=== PATIENT | male | born 1930 | race Caucasian/White ===

== ENCOUNTER 2017-07-29 11:52 | Emergency (ER) | payer MEDICARE ==
[2017-07-29] MEDS: dilTIAZem IV PUSH 25 MG/5 ML VIAL IVP (11:45)
[2017-07-29] MEDS: dilTIAZem INJ 125 MG in IV NORMAL SALINE 100ML 100 ML IV ×2 (12:05→12:29)
[2017-07-29] MEDS ORDERED: dilTIAZem INJ 125 MG in IV DEXTROSE 5% 100ML 100 ML IV (12:15)
[2017-07-29 12:20] LABS: ADD MAN DIFF? NO
[2017-07-29 12:24] LABS: BASO # 0.1 x10^3/uL (0.0-0.2); BASO % 1 % (0-3); EOS # 0.4 x10^3/uL (0.0-0.7); EOS % 4 % (0-3); HEMATOCRIT 43.2 % (39.0-53.0); LYMPH # 1.9 x10^3/uL (1.0-4.8); LYMPH % 19 % (24-48); MEAN CORPUSCULAR HEMOGLOBIN 33 pg (25-35); MEAN CORPUSCULAR HGB CONC 35 g/dL (31-37); MEAN CORPUSCULAR VOLUME 95 fL (79-100); MONO # 1.2 x10^3/uL (0.0-1.1); MONO % 11 % (0-9); NEUT # 6.7 x10^3uL (1.8-7.7); NEUT % 65 % (31-73); PLATELET COUNT 244 x10^3/uL (140-400); RED BLOOD COUNT 4.54 x10^6/uL (4.30-5.70); RED CELL DISTRIBUTION WIDTH 14.1 % (11.5-14.5); WHITE BLOOD COUNT 10.2 x10^3/uL (4.0-11.0)
[2017-07-29] MEDS: IV NORMAL SALINE 1000ML BAG 1,000 ML IV ×2 (12:29→13:10)
[2017-07-29 12:33] LABS: PROTHROMBIN TIME PATIENT 21.7 SEC (11.7-14.0)
[2017-07-29 12:35] LABS: ANION GAP 8 (6-14); BLOOD UREA NITROGEN 15 mg/dL (8-26); BUN/CREATININE RATIO 12 (6-20); CALCIUM 9.3 mg/dL (8.5-10.1); CARBON DIOXIDE 29 mmol/L (21-32); CHLORIDE 102 mmol/L (98-107); CREATININE 1.3 mg/dL (0.7-1.3); GLUCOSE 137 mg/dL (70-99); POTASSIUM 3.5 mmol/L (3.5-5.1); SODIUM 139 mmol/L (136-145)
[2017-07-29 12:42] LABS: ALBUMIN 3.7 g/dL (3.4-5.0); ALBUMIN/GLOBULIN RATIO 0.7 (1.0-1.7); ALK PHOS 101 U/L (46-116); ALT (SGPT) 25 U/L (16-63); AST (SGOT) 23 U/L (15-37); MAGNESIUM 2.1 mg/dL (1.8-2.4); TOTAL BILIRUBIN 0.7 mg/dL (0.2-1.0); TOTAL PROTEIN 8.9 g/dL (6.4-8.2)
[2017-07-29 12:45] LABS: TROPONINI < 0.017 ng/mL (0.000-0.055)
[2017-07-29 12:47] LABS: THYROID STIM HORMONE (TSH) 4.161 uIU/mL (0.358-3.74)
[2017-07-29 12:53] LABS: NT-PRO BNP 1415 pg/mL (0-449)
[2017-07-29 12:53] LABS: CKMB MASS < 0.5 ng/mL (0.0-3.6); CREATINE KINASE 73 U/L (39-308)
== END 2017-07-29 15:45 | disposition home or self-care (01) ==
LOC: ER 11:52
DX: I48.91 Unspecified atrial fibrillation (principal); I10 Essential (primary) hypertension; Z95.0 Presence of cardiac pacemaker
CPT/HCPCS: 36415; 71045; 80053; 82553; 83735; 83880; 84439; 84443; 84484; 85025; 85610; 93005; 96365; 96366; 96375; 96376; 99285-25; J3490; J7030